=== PATIENT | female | born 1940 | race Caucasian/White ===

== ENCOUNTER 2022-01-03 07:17 | Emergency (ER) | payer MEDICARE, BC ==
[2022-01-03 07:58] VITALS: BP 136/77; PULSE 97
[2022-01-03] MEDS ORDERED: Oxymetazoline 0.05% Nasal Spray 30 ML Bottle NAS ONE (07:59)
== END 2022-01-03 10:36 | disposition home or self-care (01) ==
LOC: JD.ED 07:17
DX: R04.0 Epistaxis (principal); E78.00 Pure hypercholesterolemia, unspecified; I10 Essential (primary) hypertension; Z79.899 Other long term (current) drug therapy
CPT/HCPCS: 30901; 36415; 85025; 85610; 85730; 99283; A9270

== ENCOUNTER 2022-01-05 12:33 | Emergency (ER) | payer MEDICARE, BC ==
[2022-01-05 12:44] VITALS: BP 157/76; PULSE 99
== END 2022-01-05 13:07 | disposition home or self-care (01) ==
LOC: JD.ED 12:33
DX: R04.0 Epistaxis (principal); E78.00 Pure hypercholesterolemia, unspecified; I10 Essential (primary) hypertension; K21.9 Gastro-esophageal reflux disease without esophagitis; Z79.899 Other long term (current) drug therapy
CPT/HCPCS: 99283